=== PATIENT | female | born 1995 ===

== ENCOUNTER → 2021-12-04 16:56 | Observation (INO) ==
[2021-12-04 13:30] LABS: Bacteria,Urine Few per hpf (None-Few); Bilirubin,Urine Negative (Negative); Blood,Urine Negative (Negative); Clarity,Urine Clear (Clear); Color,Urine Colorless (Yellow); Glucose,Urine (UA) Normal (Normal); Ketones,Urine Trace mg/dL (Negative); Leukocyte Esterase,Urine Moderate (Negative); Nitrite,Urine Negative (Negative); PH,Urine 6.5 pH Units (5.0-8.0); Protein,Urine Negative (Neg-Trace); RBC,Urine 0-3 per hpf (0-3); Specific Gravity,Urine 1.007 (1.010-1.025); Squamous Epithelial Cell,Urine Few per hpf (None-Few); Urobilinogen,Urine Normal (Normal)
[2021-12-04 13:46] LABS: Basophils # 0.1 K/mcL (0.0-0.2); Basophils % 0.4 %; Eosinophils % 0.3 %; Hematocrit 37.2 % (35.3-44.9); Hemoglobin 12.9 g/dL (11.5-15.4); Immature Granulocytes % 1.4 % (0-4); Lymphocytes # 1.5 K/mcL (0.6-4.6); Lymphocytes % 13.6 %; Mean Corpuscular HGB Conc 34.7 g/dL (31.6-35.5); Mean Corpuscular Hemoglobin 31.7 pg (28.0-33.3); Mean Corpuscular Volume 91.4 fL (83.0-100.0); Mean Platelet Volume 10.2 fL (9.4-12.4); Monocytes % 8.6 %; Neutrophils # 8.5 K/mcL (1.6-8.9); Platelet Count 291 K/mcL (140-400); Red Blood Count 4.07 M/mcL (3.82-4.97); Red Cell Distribution Width 13.6 % (11.5-14.5); Segmented Neutrophils % 75.7 %; White Blood Count 11.2 K/mcL (4.3-11.1)
[2021-12-04 14:06] LABS: Protein/Creatinine Ratio,Urine 0.14 mg/mg (0.00-0.20)
[2021-12-04 15:34] LABS: Alanine Aminotransferase 14 Units/L (7-52); Aspartate Amino Transferase 20 Units/L (13-39); BUN/Creatinine Ratio 13 (6-26); Blood Urea Nitrogen 8 mg/dL (6-20); Lactate Dehydrogenase 176 Units/L (140-271); eGFR For African Americans > 60 (> 60); eGFR For Non-African Americans > 60 (> 60)
== END | disposition home or self-care (01) ==
LOC: 1NENULAB
PROVIDERS: ADMIT Obstetrics & Gynecology; ATTEND Obstetrics & Gynecology

== ENCOUNTER 2021-12-11 11:24 | Inpatient (IN) ==
[2021-12-11] MEDS ORDERED: *HR* Nalbuphine 10 MG/ML AMPUL IV PRN (12:05)
[2021-12-11] MEDS ORDERED: Naloxone 0.4 MG/ML INJ IVP PRN (12:05)
[2021-12-11] MEDS ORDERED: Lidocaine 1% 20 ML MDV ID PRN (12:05)
[2021-12-11] MEDS ORDERED: Azithromycin 500 MG in 0.9 % Sodium Chloride 250 ML IVPB PRN (12:05)
[2021-12-11] MEDS ORDERED: Metoclopramide 10 MG/2 ML VIAL IVP PRN (12:05)
[2021-12-11] MEDS ORDERED: Famotidine 20 MG/2 ML VIAL IVP PRN (12:05)
[2021-12-11 12:35] LABS: Basophils % 0.4 %; Eosinophils % 0.2 %; Hematocrit 36.6 % (35.3-44.9); Hemoglobin 12.7 g/dL (11.5-15.4); Immature Granulocytes % 0.7 % (0-4); Lymphocytes # 1.5 K/mcL (0.6-4.6); Lymphocytes % 13.9 %; Mean Corpuscular HGB Conc 34.7 g/dL (31.6-35.5); Mean Corpuscular Hemoglobin 32.2 pg (28.0-33.3); Mean Corpuscular Volume 92.7 fL (83.0-100.0); Mean Platelet Volume 10.1 fL (9.4-12.4); Monocytes # 0.9 K/mcL (0.0-1.3); Neutrophils # 8.3 K/mcL (1.6-8.9); Platelet Count 342 K/mcL (140-400); Red Blood Count 3.95 M/mcL (3.82-4.97); Red Cell Distribution Width 13.7 % (11.5-14.5); Segmented Neutrophils % 76.8 %; White Blood Count 10.8 K/mcL (4.3-11.1)
[2021-12-11 12:44] LABS: Amphetamine Screen,Urine Negative ng/mL (Cutoff=1000); Barbiturate Screen,Urine Negative ng/mL (Cutoff=200); Benzodiazepines Screen,Urine Negative ng/mL (Cutoff=200); Cannabinoid Screen,Urine Negative ng/mL (Cutoff = 50); Cocaine Screen,Urine Negative ng/mL (Cutoff= 300); Creatinine,Urine 76 mg/dL; Opiate Screen,Urine Negative ng/mL (Cutoff=300); Phencyclidine Screen,Urine Negative ng/mL (Cutoff=25); Protein/Creatinine Ratio,Urine 0.26 mg/mg (0.00-0.20)
[2021-12-11 12:55] LABS: Alanine Aminotransferase 17 Units/L (7-52); Aspartate Amino Transferase 23 Units/L (13-39); BUN/Creatinine Ratio 16 (6-26); Blood Urea Nitrogen 10 mg/dL (6-20); Lactate Dehydrogenase 172 Units/L (140-271); Uric Acid 6.1 mg/dL (2.3-7.6); eGFR For African Americans > 60 (> 60); eGFR For Non-African Americans > 60 (> 60)
[2021-12-11] MEDS ORDERED: miSOPROStoL 25 MCG TABLET PO PRN (14:10)
[2021-12-11] MEDS: Ringers Solution, Lactated 1,000 ML IVC SCH (14:21)
[2021-12-11] MEDS ORDERED: EPHEDrine 50 MG/ML VIAL IVP PRN (17:55)
[2021-12-11] MEDS ORDERED: Oxytocin 30 UNIT/503 ML BAG IVC SCH (19:15)
[2021-12-11] MEDS: Ondansetron 4 MG/2 ML VIAL IVP PRN (19:56)
[2021-12-12] MEDS: Ondansetron 4 MG/2 ML VIAL IVP PRN (02:00)
[2021-12-12] MEDS ORDERED: Ondansetron 4 MG/2 ML VIAL IM ONE (06:10)
[2021-12-12] MEDS ORDERED: Ondansetron 4 MG/2 ML VIAL ONE (06:12)
[2021-12-12] MEDS ORDERED: Ibuprofen 600 MG TABLET PO ONE (07:11)
[2021-12-12] MEDS: Ringers Solution, Lactated 1,000 ML IVC SCH ×2 (07:37→07:38)
[2021-12-12] MEDS: Epidural Premix (fent/bupiv) 110 ML EP SCH (07:37)
[2021-12-12] MEDS ORDERED: *HR* OxyCODONE Immed Rel 5 MG TABLET PO PRN (08:20)
[2021-12-12] MEDS ORDERED: Rho Immune Globulin 1,500 UNIT SYRINGE IM PRN (08:20)
[2021-12-12] MEDS ORDERED: Benzocaine/Menthol 56 GM AEROSOL SPRAY TP PRN (08:20)
[2021-12-12] MEDS ORDERED: Ondansetron ODT 4 MG TAB.RAPDIS SL PRN (08:20)
[2021-12-12] MEDS ORDERED: Lanolin 7 G OINT...G. TP PRN (08:20)
[2021-12-12] MEDS: Prenatal Vit/FA 1 EACH TABLET PO SCH (09:45)
[2021-12-12] MEDS: Acetaminophen 325 MG TABLET PO SCH ×3 (09:46→22:02)
[2021-12-12] MEDS: Ibuprofen 600 MG TABLET PO SCH ×2 (13:42→19:54)
[2021-12-13] MEDS: Ibuprofen 600 MG TABLET PO SCH ×2 (01:56→08:03)
[2021-12-13 02:13] VITALS: TEMP 98; O2SAT 97
[2021-12-13] MEDS: Acetaminophen 325 MG TABLET PO SCH (04:30)
[2021-12-13 04:35] LABS: Basophils % 0.3 %; Eosinophils # 0.1 K/mcL (0.0-0.6); Eosinophils % 0.6 %; Hematocrit 31.2 % (35.3-44.9); Immature Granulocytes % 0.7 % (0-4); Lymphocytes # 2.1 K/mcL (0.6-4.6); Mean Corpuscular HGB Conc 33.7 g/dL (31.6-35.5); Mean Corpuscular Hemoglobin 31.6 pg (28.0-33.3); Mean Platelet Volume 10.3 fL (9.4-12.4); Monocytes # 1.5 K/mcL (0.0-1.3); Monocytes % 10.4 %; Neutrophils # 10.3 K/mcL (1.6-8.9); Platelet Count 283 K/mcL (140-400); Red Blood Count 3.32 M/mcL (3.82-4.97); Red Cell Distribution Width 13.9 % (11.5-14.5); White Blood Count 14.1 K/mcL (4.3-11.1)
[2021-12-13 04:36] LABS: Hemoglobin 10.5 g/dL (11.5-15.4)
[2021-12-13] MEDS: Prenatal Vit/FA 1 EACH TABLET PO SCH (08:03)
[2021-12-13 08:06] VITALS: BP 123/83; PULSE 72
== END 2021-12-13 10:42 | disposition home or self-care (01) | DRG 807 ==
LOC: 1NENULAB 11:24 → 1NENUOBS 12-12 09:22
PROVIDERS: ADMIT Registered Nurse; ATTEND Registered Nurse

== ENCOUNTER 2021-12-16 01:24 | Inpatient (IN) ==
[2021-12-16] MEDS ORDERED: *HR* Labetalol 20 MG/4 ML SYRINGE IVP PRN (02:24)
[2021-12-16 03:26] LABS: Protein/Creatinine Ratio,Urine 0.2 mg/mg (0.00-0.20)
[2021-12-16 03:30] LABS: Basophils # 0.1 K/mcL (0.0-0.2); Basophils % 0.5 %; Eosinophils # 0.3 K/mcL (0.0-0.6); Eosinophils % 2.5 %; Hematocrit 35.8 % (35.3-44.9); Lymphocytes # 1.8 K/mcL (0.6-4.6); Lymphocytes % 13.1 %; Mean Corpuscular HGB Conc 33.8 g/dL (31.6-35.5); Mean Corpuscular Hemoglobin 31.9 pg (28.0-33.3); Mean Corpuscular Volume 94.5 fL (83.0-100.0); Mean Platelet Volume 9.2 fL (9.4-12.4); Monocytes % 7.6 %; Platelet Count 352 K/mcL (140-400); Red Blood Count 3.79 M/mcL (3.82-4.97); Segmented Neutrophils % 75.3 %; White Blood Count 13.3 K/mcL (4.3-11.1)
[2021-12-16 03:31] LABS: Bacteria,Urine Few per hpf (None-Few); Bilirubin,Urine Negative (Negative); Blood,Urine Large (Negative); Clarity,Urine Clear (Clear); Color,Urine Light-Yellow (Yellow); Glucose,Urine (UA) Normal (Normal); Ketones,Urine Negative (Negative); Leukocyte Esterase,Urine Large (Negative); Mucus,Urine Few per lpf (None-Few); Nitrite,Urine Negative (Negative); PH,Urine 6.5 pH Units (5.0-8.0); Protein,Urine Trace mg/dL (Neg-Trace); RBC,Urine 50-100 per hpf (0-3); Specific Gravity,Urine 1.019 (1.010-1.025); Squamous Epithelial Cell,Urine Few per hpf (None-Few); Urobilinogen,Urine Normal (Normal); WBC,Urine 50-100 per hpf (0-3)
[2021-12-16 03:34] LABS: Alanine Aminotransferase 124 Units/L (7-52); Aspartate Amino Transferase 95 Units/L (13-39); BUN/Creatinine Ratio 15 (6-26); Blood Urea Nitrogen 9 mg/dL (6-20); Lactate Dehydrogenase 249 Units/L (140-271); Uric Acid 5.2 mg/dL (2.3-7.6); eGFR For African Americans > 60 (> 60); eGFR For Non-African Americans > 60 (> 60)
[2021-12-16 03:38] LABS: Hemoglobin 12.1 g/dL (11.5-15.4)
[2021-12-16] MEDS ORDERED: Magnesium Sulf 20 gm/SW 500mL 4 GM/100 ML BAG IV ONE (04:29)
[2021-12-16] MEDS ORDERED: Ringers Solution, Lactated 1,000 ML ONE ×2 (05:52→18:01)
[2021-12-16] MEDS ORDERED: Calcium Gluconate 1,000 MG/10 ML VIAL IVP PRN (05:52)
[2021-12-16] MEDS ORDERED: Lanolin 7 G OINT...G. TP PRN (06:28)
[2021-12-16] MEDS ORDERED: Ondansetron ODT 4 MG TAB.RAPDIS SL PRN (06:28)
[2021-12-16] MEDS ORDERED: Benzocaine/Menthol 56 GM AEROSOL SPRAY TP PRN (06:28)
[2021-12-16] MEDS ORDERED: Metoclopramide 10 MG/2 ML VIAL IVP ONE (07:21)
[2021-12-16] MEDS: Acetaminophen 325 MG TABLET PO SCH ×3 (07:45→22:00)
[2021-12-16] MEDS: Prenatal Vit/FA 1 EACH TABLET PO SCH (07:45)
[2021-12-16] MEDS: NIFEdipine XL (24 HR) 30 MG TAB.ER.24 PO SCH (08:46)
[2021-12-16] MEDS: Ibuprofen 600 MG TABLET PO SCH ×2 (13:09→20:51)
[2021-12-17] MEDS: Magnesium Sulf 20 gm/SW 500mL 20 GM/500 ML IV.SOLN IVC SCH (00:07)
[2021-12-17] MEDS: Ibuprofen 600 MG TABLET PO SCH ×3 (01:34→15:04)
[2021-12-17 05:04] LABS: Basophils % 0.4 %; Eosinophils # 0.3 K/mcL (0.0-0.6); Eosinophils % 3.3 %; Hemoglobin 11.8 g/dL (11.5-15.4); Immature Granulocytes % 0.8 % (0-4); Lymphocytes # 1.7 K/mcL (0.6-4.6); Lymphocytes % 17.1 %; Mean Corpuscular HGB Conc 33.7 g/dL (31.6-35.5); Mean Corpuscular Hemoglobin 31.3 pg (28.0-33.3); Mean Corpuscular Volume 92.8 fL (83.0-100.0); Mean Platelet Volume 8.6 fL (9.4-12.4); Monocytes # 0.9 K/mcL (0.0-1.3); Monocytes % 9.5 %; Neutrophils # 6.7 K/mcL (1.6-8.9); Platelet Count 353 K/mcL (140-400); Red Blood Count 3.77 M/mcL (3.82-4.97); Red Cell Distribution Width 14.1 % (11.5-14.5); Segmented Neutrophils % 68.9 %; White Blood Count 9.8 K/mcL (4.3-11.1)
[2021-12-17 05:14] LABS: Protein/Creatinine Ratio,Urine 1.59 mg/mg (0.00-0.20)
[2021-12-17 05:26] LABS: Alanine Aminotransferase 85 Units/L (7-52); Aspartate Amino Transferase 43 Units/L (13-39); BUN/Creatinine Ratio 13 (6-26); Blood Urea Nitrogen 7 mg/dL (6-20); Lactate Dehydrogenase 204 Units/L (140-271); Uric Acid 4.8 mg/dL (2.3-7.6)
[2021-12-17] MEDS: Acetaminophen 325 MG TABLET PO SCH ×3 (05:37→20:24)
[2021-12-17] MEDS: Prenatal Vit/FA 1 EACH TABLET PO SCH ×2 (08:54→08:55)
[2021-12-17] MEDS: NIFEdipine XL (24 HR) 30 MG TAB.ER.24 PO SCH (08:54)
[2021-12-17] MEDS ORDERED: NIFEdipine XL (24 HR) 30 MG TAB.ER.24 PO ONE (10:15)
[2021-12-17] MEDS ORDERED: *HR* Labetalol 20 MG/4 ML SYRINGE IVP ONE ×2 (20:30)
[2021-12-18] MEDS ORDERED: NIFEdipine Immed Rel 10 MG CAPSULE PO ONE ×2 (04:10→04:21)
[2021-12-18] MEDS: Acetaminophen 325 MG TABLET PO SCH (08:51)
[2021-12-18] MEDS ORDERED: NIFEdipine XL (24 HR) 30 MG TAB.ER.24 PO SCH (09:00)
[2021-12-18] MEDS ORDERED: NIFEdipine XL (24 HR) 60 MG TAB.ER.24 PO SCH (09:00)
[2021-12-18 10:54] LABS: Basophils # 0.1 K/mcL (0.0-0.2); Basophils % 0.6 %; Eosinophils # 0.4 K/mcL (0.0-0.6); Hematocrit 37.2 % (35.3-44.9); Hemoglobin 12.4 g/dL (11.5-15.4); Immature Granulocytes % 0.8 % (0-4); Lymphocytes # 1.8 K/mcL (0.6-4.6); Lymphocytes % 15.5 %; Mean Corpuscular HGB Conc 33.3 g/dL (31.6-35.5); Mean Corpuscular Hemoglobin 31.4 pg (28.0-33.3); Mean Corpuscular Volume 94.2 fL (83.0-100.0); Mean Platelet Volume 8.6 fL (9.4-12.4); Monocytes # 0.9 K/mcL (0.0-1.3); Monocytes % 7.3 %; Neutrophils # 8.6 K/mcL (1.6-8.9); Platelet Count 442 K/mcL (140-400); Red Blood Count 3.95 M/mcL (3.82-4.97); Red Cell Distribution Width 13.8 % (11.5-14.5); Segmented Neutrophils % 72.8 %; White Blood Count 11.8 K/mcL (4.3-11.1)
[2021-12-18 11:10] LABS: Alanine Aminotransferase 63 Units/L (7-52); Aspartate Amino Transferase 28 Units/L (13-39); BUN/Creatinine Ratio 12 (6-26); Blood Urea Nitrogen 7 mg/dL (6-20); Lactate Dehydrogenase 209 Units/L (140-271); Uric Acid 4.9 mg/dL (2.3-7.6); eGFR For African Americans > 60 (> 60); eGFR For Non-African Americans > 60 (> 60)
[2021-12-18] MEDS: Ibuprofen 600 MG TABLET PO SCH (12:17)
[2021-12-18] MEDS ORDERED: *HR* Labetalol 20 MG/4 ML SYRINGE IVP PRN (18:14)
[2021-12-19] MEDS ORDERED: Ibuprofen 400 MG TABLET PO PRN (07:20)
[2021-12-19] MEDS: Acetaminophen 325 MG TABLET PO SCH ×4 (07:25→20:13)
[2021-12-19] MEDS: Magnesium Sulf 20 gm/SW 500mL 20 GM/500 ML IV.SOLN IVC SCH ×2 (07:26→07:27)
[2021-12-19] MEDS: Ibuprofen 600 MG TABLET PO SCH ×3 (07:28→07:30)
[2021-12-19] MEDS ORDERED: hydrALAZINE 25 MG TABLET PO ONE (07:52)
[2021-12-19] MEDS ORDERED: NIFEdipine XL (24 HR) 60 MG TAB.ER.24 PO SCH (09:00)
[2021-12-19] MEDS: Prenatal Vit/FA 1 EACH TABLET PO SCH (09:04)
[2021-12-20] MEDS: Acetaminophen 325 MG TABLET PO SCH ×4 (04:17→22:15)
[2021-12-20] MEDS ORDERED: hydrALAZINE 25 MG TABLET PO SCH (08:00)
[2021-12-20] MEDS: Prenatal Vit/FA 1 EACH TABLET PO SCH (08:01)
[2021-12-20 13:54] LABS: Basophils # 0.1 K/mcL (0.0-0.2); Basophils % 0.6 %; Eosinophils # 0.4 K/mcL (0.0-0.6); Eosinophils % 3.3 %; Hematocrit 40.4 % (35.3-44.9); Hemoglobin 13.4 g/dL (11.5-15.4); Immature Granulocytes % 0.6 % (0-4); Lymphocytes # 2.2 K/mcL (0.6-4.6); Lymphocytes % 18.4 %; Mean Corpuscular HGB Conc 33.2 g/dL (31.6-35.5); Mean Corpuscular Hemoglobin 31.5 pg (28.0-33.3); Mean Corpuscular Volume 94.8 fL (83.0-100.0); Mean Platelet Volume 8.2 fL (9.4-12.4); Monocytes # 1.1 K/mcL (0.0-1.3); Monocytes % 9.3 %; Neutrophils # 8.1 K/mcL (1.6-8.9); Platelet Count 455 K/mcL (140-400); Red Blood Count 4.26 M/mcL (3.82-4.97); Red Cell Distribution Width 13.6 % (11.5-14.5); Segmented Neutrophils % 67.8 %; White Blood Count 11.9 K/mcL (4.3-11.1)
[2021-12-20 14:24] LABS: Uric Acid 5.3 mg/dL (2.3-7.6)
[2021-12-20 14:26] LABS: Alanine Aminotransferase 49 Units/L (7-52); Albumin 3.9 g/dL (3.5-5.7); Albumin/Globulin Ratio 1.3 (1.1-2.2); Alkaline Phosphatase 104 Units/L (34-104); Aspartate Amino Transferase 28 Units/L (13-39); BUN/Creatinine Ratio 20 (6-26); Bilirubin,Indirect 0.2 mg/dL (0.0-1.0); Bilirubin,Total 0.2 mg/dL (0.3-1.0); Blood Urea Nitrogen 12 mg/dL (6-20); Calcium 9.3 mg/dL (8.6-10.3); Carbon Dioxide 22 mEq/L (23-29); Chloride 105 mEq/L (98-107); Glucose 124 mg/dL (70-105); Osmolality,Calculated 283 (280-300); Potassium 3.9 mEq/L (3.5-5.1); Sodium 136 mEq/L (136-145); Total Protein 6.9 g/dL (6.4-8.9); eGFR For African Americans > 60 (> 60); eGFR For Non-African Americans > 60 (> 60)
[2021-12-20] MEDS: hydrALAZINE 25 MG TABLET PO SCH (16:25)
[2021-12-21] MEDS: hydrALAZINE 25 MG TABLET PO SCH ×2 (00:40→09:16)
[2021-12-21] MEDS: Acetaminophen 325 MG TABLET PO SCH ×2 (02:53→04:06)
[2021-12-21 05:00] LABS: Hematocrit 41.8 % (35.3-44.9); Hemoglobin 13.7 g/dL (11.5-15.4); Mean Corpuscular HGB Conc 32.8 g/dL (31.6-35.5); Mean Corpuscular Hemoglobin 31.2 pg (28.0-33.3); Mean Corpuscular Volume 95.2 fL (83.0-100.0); Mean Platelet Volume 8.1 fL (9.4-12.4); Platelet Count 444 K/mcL (140-400); Red Blood Count 4.39 M/mcL (3.82-4.97); Red Cell Distribution Width 13.5 % (11.5-14.5); White Blood Count 7.5 K/mcL (4.3-11.1)
[2021-12-21 05:23] LABS: BUN/Creatinine Ratio 19 (6-26); Blood Urea Nitrogen 11 mg/dL (6-20); Carbon Dioxide 21 mEq/L (23-29); Chloride 105 mEq/L (98-107); Glucose 82 mg/dL (70-105); Magnesium 1.9 mg/dL (1.6-2.6); Osmolality,Calculated 280 (280-300); Potassium 4.1 mEq/L (3.5-5.1); Sodium 136 mEq/L (136-145); eGFR For African Americans > 60 (> 60); eGFR For Non-African Americans > 60 (> 60)
[2021-12-21 07:08] VITALS: BP 129/88; PULSE 70; TEMP 98.1; O2SAT 98
[2021-12-21] MEDS: Prenatal Vit/FA 1 EACH TABLET PO SCH (09:15)
== END 2021-12-21 14:43 | disposition home or self-care (01) | DRG 776 ==
LOC: 1NENUOBS 01:24 → EMEROOARM 01:24 → 1NENUOBS 05:28
PROVIDERS: ADMIT Advanced Practice Midwife; ATTEND Obstetrics & Gynecology